=== PATIENT | male | born 1935 ===

== ENCOUNTER 2018-07-17 20:22 | Inpatient (IN) | payer OTHER ==
[~2018-07-17] VITALS: Ht 162.6 cm; Wt 56.7 kg
[2018-07-23] MEDS ORDERED: ARICEPT5 MG PO (07:33)
[2018-07-23] MEDS ORDERED: NORVASC5 MG PO (07:33)
[2018-07-23] MEDS ORDERED: NAMENDA10 MG PO (07:33)
[2018-07-23] MEDS ORDERED: ATENOLOL25 MG PO (07:34)
[2018-07-23] MEDS ORDERED: ASA325 MG PO (07:36)
== END 2018-07-28 12:53 | disposition home or self-care (01) | DRG 593 ==
LOC: SEC-K 20:22 → MEDJ 20:22 → SEC-K 20:27 → MEDJ 07-18 11:46
PROC: 02HV33Z Insertion of Infusion Device into Superior Vena Cava, Percutaneous Approach (ICD-10-PCS; principal; 2018-07-19)
PROC: 0HB6XZX Excision of Back Skin, External Approach, Diagnostic (ICD-10-PCS; 2018-07-23)
PROC: 0HBJXZX Excision of Left Upper Leg Skin, External Approach, Diagnostic (ICD-10-PCS; 2018-07-23)
DX: L97.128 Non-pressure chronic ulcer of left thigh with other specified severity (principal); B02.8 Zoster with other complications; K40.90 Unilateral inguinal hernia, without obstruction or gangrene, not specified as recurrent; G30.8 Other Alzheimer's disease; F02.80 Dementia in other diseases classified elsewhere, unspecified severity, without behavioral disturbance, psychotic disturbance, mood disturbance, and anxiety; B95.61 Methicillin susceptible Staphylococcus aureus infection as the cause of diseases classified elsewhere; L98.498 Non-pressure chronic ulcer of skin of other sites with other specified severity; L98.428 Non-pressure chronic ulcer of back with other specified severity